=== PATIENT | male | born 1950 | race Caucasian/White ===

== ENCOUNTER 2024-06-07 20:19 | Inpatient (IN) | payer MEDICARE, OTHER ==
[~2024-06-07] VITALS: Ht 165.1 cm; Wt 108.9 kg
[2024-06-07] MEDS ORDERED: ONDANSETRON 4 MG/2 ML VIAL ONE (20:32)
[2024-06-07] MEDS: ONDANSETRON 4 MG/2 ML VIAL IV ONE (20:36)
[2024-06-07] MEDS: IV NORMAL SALINE 500 ML BAG IV ONE (20:36)
[2024-06-07 20:39] LABS: BASOPHILS # (AUTO) 0.1 K/UL (0.0-0.2); BASOPHILS % (AUTO) 0.6 % (0.0-2.0); EOSINOPHILS # (AUTO) 0.1 K/uL (0.0-0.7); EOSINOPHILS % (AUTO) 0.6 % (0.0-7.0); HEMATOCRIT 39.3 % (36.7-47.1); HEMOGLOBIN 12.9 g/dL (12.5-16.3); LYMPHOCYTES # (AUTO) 1.1 K/uL (0.8-4.8); LYMPHOCYTES % (AUTO) 8.8 % (20.5-51.5); MEAN CORPUSCULAR HEMOGLOBIN 24.6 uug (23.8-33.4); MEAN CORPUSCULAR HGB CONC 33 g/dL (32.5-36.3); MEAN CORPUSCULAR VOLUME 75.2 fL (73.0-96.2); MONOCYTES # (AUTO) 0.8 K/uL (0.1-1.30); MONOCYTES % (AUTO) 6.8 % (0.0-11.0); NEUTROPHILS # (AUTO) 10.3 K/uL (1.8-8.9); NEUTROPHILS % (AUTO) 83.2 % (38.5-71.5); PLATELET COUNT (AUTO) 157 K/uL (152-348); RED BLOOD CELL COUNT(AUTO) 5.23 MIL/uL (4.06-5.63); RED CELL DISTRIBUTION WIDTH 19.9 % (12.1-16.2); WHITE BLOOD COUNT (AUTO) 12.4 K/uL (3.6-10.2)
[2024-06-07 20:43] LABS: DIFFERENTIAL COMMENT 1
[2024-06-07 20:48] LABS: CALCIUM 9.2 mg/dL (8.5-10.1); CARBON DIOXIDE 26 mmol/L (21-32); CHLORIDE 102 mmol/L (98-107); CREATININE 1.6 mg/dL (0.6-1.3); GLUCOSE 184 mg/dL (74-106); POTASSIUM 4.1 mmol/L (3.5-5.1); SODIUM SERUM 140 mmol/L (136-145); UREA NITROGEN, BLOOD 20 mg/dL (7-18)
[2024-06-07 20:53] LABS: ALANINE AMINOTRANSFERASE 11 U/L (16-63); ALBUMIN 3.3 g/dL (3.4-5.0); ALKALINE PHOSPHATASE 87 U/L (50-136); ASPARTATE AMINOTRANSFERASE 8 U/L (15-37); BILIRUBIN,TOTAL 0.8 mg/dL (0.2-1.0); TOTAL PROTEIN, SERUM 7.5 g/dL (6.4-8.2)
[2024-06-07 20:54] LABS: C-REACTIVE PROTEIN 12.43 mg/dL (0.00-0.30)
[2024-06-07] MEDS ORDERED: LEVO25TA9 PO (22:50)
[2024-06-07] MEDS ORDERED: RIVA20TA PO (22:50)
[2024-06-07] MEDS ORDERED: CEFEPIME HCL 1 G VIAL ONE (23:52)
[2024-06-07] MEDS ORDERED: METRONIDAZOLE 500 MG/NS 100ML 100 ML IV ONE (23:53)
[2024-06-08] VITALS (7 sets, daily range): BP systolic 115–158; BP diastolic 56–78; TEMP 97.6–98.6; O2SAT 97–100
[2024-06-08] MEDS: METRONIDAZOLE 500 MG/NS 100 ML PIGGYBACK IV ONE (00:03)
[2024-06-08] MEDS: CEFEPIME HCL 1 G in IV DEXTROSE 5% 50 ML IV ONE (00:03)
[2024-06-08] MEDS ORDERED: ONDANSETRON HCL 4 MG TABLET PO PRN (02:00)
[2024-06-08] MEDS ORDERED: MORPHINE SULFATE 20 MG/1 ML ORAL LIQ. PO PRN ×2 (02:00→12:15)
[2024-06-08] MEDS ORDERED: PIPERACILLIN/TAZOBACTAM/D5W 50 ML IV ONE (04:59)
[2024-06-08] MEDS: PIPERACILLIN SODIUM/TAZOBACTAM 3.375 G in IV DEXTROSE 5% 50 ML IV SCH (05:27)
[2024-06-08] MEDS: PANTOPRAZOLE SODIUM 40 MG TABLET.DR PO SCH (06:24)
[2024-06-08 09:36] LABS: BASOPHILS % (AUTO) 0.4 % (0.0-2.0); DIFFERENTIAL COMMENT 0; EOSINOPHILS % (AUTO) 0.3 % (0.0-7.0); HEMATOCRIT 36.4 % (36.7-47.1); HEMOGLOBIN 11.8 g/dL (12.5-16.3); LYMPHOCYTES # (AUTO) 0.6 K/uL (0.8-4.8); LYMPHOCYTES % (AUTO) 7.8 % (20.5-51.5); MEAN CORPUSCULAR HEMOGLOBIN 24.5 uug (23.8-33.4); MEAN CORPUSCULAR HGB CONC 32 g/dL (32.5-36.3); MEAN CORPUSCULAR VOLUME 75.7 fL (73.0-96.2); MONOCYTES # (AUTO) 0.5 K/uL (0.1-1.30); MONOCYTES % (AUTO) 5.8 % (0.0-11.0); NEUTROPHILS # (AUTO) 7.1 K/uL (1.8-8.9); NEUTROPHILS % (AUTO) 85.7 % (38.5-71.5); PLATELET COUNT (AUTO) 136 K/uL (152-348); RED CELL DISTRIBUTION WIDTH 20.2 % (12.1-16.2); WHITE BLOOD COUNT (AUTO) 8.3 K/uL (3.6-10.2)
[2024-06-08 09:39] LABS: ALANINE AMINOTRANSFERASE 7 U/L (16-63); ALBUMIN 2.6 g/dL (3.4-5.0); ALKALINE PHOSPHATASE 69 U/L (50-136); ASPARTATE AMINOTRANSFERASE 10 U/L (15-37); BILIRUBIN,TOTAL 0.5 mg/dL (0.2-1.0); CALCIUM 8.6 mg/dL (8.5-10.1); CARBON DIOXIDE 28 mmol/L (21-32); CHLORIDE 107 mmol/L (98-107); CREATININE 1.2 mg/dL (0.6-1.3); GLUCOSE 154 mg/dL (74-106); PHOSPHOROUS 3.2 mg/dL (2.5-4.9); POTASSIUM 4.4 mmol/L (3.5-5.1); SODIUM SERUM 141 mmol/L (136-145); TOTAL PROTEIN, SERUM 6.4 g/dL (6.4-8.2); UREA NITROGEN, BLOOD 17 mg/dL (7-18)
[2024-06-08] MEDS: PIPERACILLIN SODIUM/TAZOBACTAM 3.375 G in IV DEXTROSE 5% 100 ML IV SCH (12:34)
[2024-06-08] MEDS ORDERED: HYDROCODONE/APAP 10-325 MG TABLET PO PRN (12:45)
[2024-06-08] MEDS ORDERED: MONT10TA33 PO (15:32)
[2024-06-08] MEDS ORDERED: LEVO125T8 PO (15:32)
[2024-06-08] MEDS ORDERED: ALLO300T2 PO (15:32)
[2024-06-08] MEDS ORDERED: DEXL60CA3 PO (15:32)
[2024-06-08] MEDS ORDERED: CHOL2000 PO (15:32)
[2024-06-08] MEDS ORDERED: ALFU10TA10 PO (15:32)
[2024-06-08] MEDS ORDERED: FAMO20TA8 PO (15:32)
[2024-06-08] MEDS ORDERED: ROSU40TA23 PO (15:34)
[2024-06-08] MEDS ORDERED: ICOS1CAP PO (15:34)
[2024-06-08] MEDS ORDERED: NEBI20TA2 PO (15:35)
[2024-06-08] MEDS: RIVAROXABAN 10 MG TABLET PO SCH (16:36)
[2024-06-08] MEDS: MONTELUKAST SODIUM 10 MG TABLET PO SCH (18:16)
[2024-06-08 19:28] LABS: *BILIRUBIN,URIN NEGATIVE (NEGATIVE); *BLOOD, URINE 1+ (NEGATIVE); *CLARITY,URINE SLIGHTLY CLOUDY (CLEAR); *COLOR,URINE YELLOW (YELLOW); *KETONES,URINE NEGATIVE (NEGATIVE); *PROTEIN,URINE 1+ (NEGATIVE); *UROBILINOGEN,URINE 0.2 E.U./dl (NORMAL); LEUKOCYTE ESTERASE ,URINE 2+ (NEGATIVE); NITRITE, URINE NEGATIVE (NEGATIVE); PH,URINE 5.5 (5.0-8.0); UGLUCOSE NEGATIVE (NEGATIVE)
[2024-06-08 19:45] LABS: BACTERIA,URINE FEW /HPF (NONE SEEN); SQUAMOUS EPITHELIAL CELL,UR FEW /HPF (NONE SEEN); WBC,URINE 50-80 /HPF (0-3)
[2024-06-08] MEDS: METOPROLOL TARTRATE 50 MG TABLET PO SCH (20:13)
[2024-06-08] MEDS: ATORVASTATIN 40 MG TABLET PO SCH (20:14)
[2024-06-08] MEDS ORDERED: Medication Not On Formulary EA (Rosuvastatin Calcium 1 TAB) PO SCH (21:00)
[2024-06-08] MEDS: TEMAZEPAM 15 MG CAPSULE PO PRN (22:20)
[2024-06-09] VITALS (7 sets, daily range): BP systolic 116–140; BP diastolic 56–78; TEMP 97.7–100.2; O2SAT 96–98
[2024-06-09] MEDS: LEVOTHYROXINE SODIUM 125 MCG TABLET PO SCH (06:31)
[2024-06-09] MEDS ORDERED: LEVOTHYROXINE SODIUM 25 MCG TABLET PO SCH ×2 (07:30)
[2024-06-09] MEDS: ACETAMINOPHEN 325 MG TABLET PO PRN (08:01)
[2024-06-09] MEDS: FAMOTIDINE 20 MG TABLET PO SCH (08:49)
[2024-06-09] MEDS: ALFUZOSIN HCL 10 MG TAB.SR.24H PO SCH (08:49)
[2024-06-09] MEDS: CHOLECALCIFEROL 1,000 UNIT TABLET PO SCH (08:49)
[2024-06-09] MEDS: ALLOPURINOL 300 MG TABLET PO SCH (08:49)
[2024-06-09] MEDS ORDERED: Medication Not On Formulary EA (Nebivolol Hcl (Bystolic) 20 MG) PO SCH (09:00)
[2024-06-09] MEDS ORDERED: Icosapent Ethyl (Vascepa) 1 CAP) PO SCH (09:00)
[2024-06-09] MEDS ORDERED: Medication Not On Formulary EA (Rivaroxaban (Xarelto) 1 TAB) PO SCH (09:00)
[2024-06-09] MEDS ORDERED: RIVA10TA PO (12:34)
[2024-06-09] MEDS ORDERED: LEVO750T46 PO (12:34)
[2024-06-09] MEDS ORDERED: METO50TA16 PO (12:34)
[2024-06-09] MEDS ORDERED: OMEGA-3 FATTY ACIDS/FISH OIL CAPSULE PO SCH (21:00)
== END 2024-06-09 16:00 | disposition home or self-care (01) | DRG 690 ==
LOC: ER 20:27 → TELE3 23:10
PROVIDERS: ADMIT Internal Medicine; ATTEND Nurse Practitioner Acute Care
DX: N12 Tubulo-interstitial nephritis, not specified as acute or chronic (principal); E44.0 Moderate protein-calorie malnutrition; I48.20 Chronic atrial fibrillation, unspecified; N17.0 Acute kidney failure with tubular necrosis; E03.9 Hypothyroidism, unspecified; K42.9 Umbilical hernia without obstruction or gangrene; K44.9 Diaphragmatic hernia without obstruction or gangrene; B96.89 Other specified bacterial agents as the cause of diseases classified elsewhere; E78.5 Hyperlipidemia, unspecified; E66.9 Obesity, unspecified; Z68.39 Body mass index [BMI] 39.0-39.9, adult; Z79.01 Long term (current) use of anticoagulants; Z87.440 Personal history of urinary (tract) infections; Z85.819 Personal history of malignant neoplasm of unspecified site of lip, oral cavity, and pharynx; Z85.46 Personal history of malignant neoplasm of prostate; E88.09 Other disorders of plasma-protein metabolism, not elsewhere classified; Z90.2 Acquired absence of lung [part of]; N18.9 Chronic kidney disease, unspecified; Z79.890 Hormone replacement therapy; Z79.899 Other long term (current) drug therapy
CPT/HCPCS: 36415; 83605; 83690; 83735; 84100; 84484; 85025; 86140; 87086; G0378; J0692; J2405; J2543; J3490; J7040; J8499